=== PATIENT | male | born 1995 | race Caucasian/White ===

== ENCOUNTER 2024-05-28 09:03 | Emergency (ER) | payer BC ==
[2024-05-28] MEDS: Diphtheria,Pertussis(Acell),Tetanus Vaccine 0.5 ML Syringe IM ONE (09:27)
[2024-05-28] MEDS: Lidocaine 1% 5 ML VIAL ONE (09:44)
[2024-05-28] MEDS: Lidocaine 1% 5 ML VIAL INJECT ONE (09:45)
[2024-05-28] MEDS: Bacitracin/Neomycin/Polymyxin B Oint 0.9 GM U/D Packet TOP ONE (10:01)
[2024-05-28] MEDS: Cephalexin 250 MG Cap PO ONE (10:17)
== END 2024-05-28 10:18 | disposition home or self-care (01) ==
LOC: KA.ED 09:03
DX: S61.211A Laceration without foreign body of left index finger without damage to nail, initial encounter (principal); Z23 Encounter for immunization; W50.0XXA Accidental hit or strike by another person, initial encounter
CPT/HCPCS: 12001; 90471; 90715; 99282-25; A9270-GY; J3490